=== PATIENT | female | born 1985 | race Caucasian/White ===

== ENCOUNTER 2016-10-20 20:45 | Emergency (ER) | payer MEDICAID ==
[2016-10-20 21:28] LABS: RBC URINE 2 /hpf (0-3); URINE BACTERIA RARE (<OCC); URINE BILIRUBIN NEGATIVE (NEGATIVE); URINE COLOR Yellow (YELLOW); URINE GLUCOSE (UA) NORMAL (Normal); URINE KETONE NEGATIVE (NEGATIVE); URINE PROTEIN NEGATIVE (NEGATIVE); URINE UROBILINOGEN NORMAL mg/dL (0.2-1.0); WBC URINE 5 /hpf (0-5)
[2016-10-20 21:29] LABS: URINE BLOOD NEGATIVE (NEGATIVE); URINE LEUKOCYTE ESTERASE TRACE Leu/uL (Negative)
[2016-10-20 21:32] LABS: BASO % 0.4 % (0.0-2.0); EOS % 0.4 % (0.0-4.0); HEMATOCRIT 37.3 % (34.0-47.0); LYMPH # 1.1 K/uL (1.0-4.3); LYMPH % 17.6 % (20.0-40.0); MEAN CELL VOLUME 82.8 fL (81.0-99.0); MEAN CORPUSCULAR HEMOGLOBIN 28.2 pg (27.0-31.0); MEAN CORPUSCULAR HGB CONC 34.1 g/dL (33.0-37.0); MEAN PLATELET VOLUME 9.2 fL (7.2-11.7); MONO # 0.5 K/uL (0.0-0.8); MONO % 7.1 % (0.0-10.0); RED CELL DISTRIBUTION WIDTH 13.4 % (11.5-14.5); WHITE BLOOD COUNT 6.5 K/uL (4.8-10.8)
[2016-10-20 21:34] LABS: CHLORIDE 96 mmol/L (98-107)
[2016-10-20 21:35] LABS: POTASSIUM 3.3 mmol/L (3.6-5.2); SODIUM 134 mmol/L (132-148)
[2016-10-20 21:37] LABS: ALB/GLOB RATIO 1.1 (1.0-2.1); AST/SGOT 25 U/L (14-36); BILIRUBIN,TOTAL 0.1 mg/dL (0.2-1.3); BLOOD UREA NITROGEN 6 mg/dL (7-17); CARBON DIOXIDE 25 mmol/L (22-30); GFR AFRICAN-AMERICAN > 60; GLUCOSE,RANDOM 78 mg/dL (65-105); TOTAL PROTEIN 6.8 g/dL (6.3-8.3)
[2016-10-20 21:38] LABS: ALKALINE PHOSPHATASE 54 U/L (38-126); ALT/SGPT 20 U/L (9-52); CALCIUM 8.4 mg/dl (8.6-10.4)
--- NOTE | 2016-10-20 21:42 | C.PDOC ---
History Of Present Illness The patient, a 31 y/o female who is around 11 weeks , presents to the emergency department for evaluation of abdominal cramping associated with vaginal spotting which began around 1 day ago. Patient also reports a mild cough , congestion, and sore throat. She denies fever, chills, nausea, vomiting. Patient is . Time Seen by Provider: 10/20/16 21:03 Chief Complaint (Nursing): Abdominal Pain History Per: Patient History/Exam Limitations: no limitations Onset/Duration Of Symptoms: Hrs Current Symptoms Are (Timing): Still Present Radiation Of Pain To:: None Quality Of Discomfort: Cramping Associated Symptoms: Other (+mild cough, congestion, sore throat ). denies: Fever, Chills, Nausea, Vomiting Abnormal Vaginal Bleeding: Yes : 8 Para: 2 Past Medical History Reviewed: Historical Data, Nursing Documentation, Vital Signs Vital Signs: Last Vital Signs Temp 98.4 F 10/20/16 22:21 Pulse 85 10/20/16 22:21 Resp 17 10/20/16 22:21 BP 127/82 10/20/16 22:21 Pulse Ox 100 10/20/16 22:21 - Medical History PMH: No Chronic Diseases Surgical History: No Surg Hx Family History: States: Unknown Family Hx - Social History Hx Alcohol Use: No Hx Substance Use: No - Immunization History Hx Tetanus Toxoid Vaccination: No Hx Influenza Vaccination: No Hx Pneumococcal Vaccination: No Review Of Systems Except As Marked, All Systems Reviewed And Found Negative. Constitutional: Negative for: Fever, Chills ENT: Positive for: Nose Congestion, Throat Pain Respiratory: Positive for: Cough (mild ) Gastrointestinal: Positive for: Abdominal Pain (cramping ) Genitourinary: Positive for: Vaginal Bleeding (spotting ) Physical Exam - Physical Exam Appears: Non-toxic, No Acute Distress Skin: Normal Color, Warm, Dry Head: Atraumatic, Normacephalic Eye(s): bilateral: Normal Inspection, EOMI Ear(s): Bilateral: Normal Nose: Normal, No Discharge Oral Mucosa: Moist Throat: Erythema, No Exudate Neck: Normal ROM, Supple Chest: Symmetrical, No Deformity, No Tenderness Cardiovascular: Rhythm Regular, No Murmur Respiratory: Normal Breath Sounds, No Rales, No Rhonchi, No Wheezing Gastrointestinal/Abdominal: Tenderness (mild, to suprapublic region on palpation ), No Guarding, No Rebound Back: Normal Inspection, No Vertebral Tenderness, No Paraspinal Tenderness Extremity: Normal ROM, Capillary Refill (less than 2 seconds) Neurological/Psych: Oriented x3, Normal Speech, Normal Cognition Gait: Steady ED Course And Treatment - Laboratory Results Result Diagrams: 10/20/16 21:12 10/20/16 21:12 O2 Sat by Pulse Oximetry: 99 (on RA) Pulse Ox Interpretation: Normal Medical Decision Making Medical Decision Making: Impression: 31y/o female c/o abdominal cramping, vaginal spotting, mild cough, congestion, and sore throat Plan: * labs * reassess and disposition Progress Notes: Patient declines medications in the emergency department and states she "wants the baby checked." 1114: pt reassesed. comfortable. abd soft. no ttp. influenza tx. iup confirmed stablef or d/c Disposition - Disposition Referrals: [facility] [Outside] [facility] [Outside] Satish Driscoll [Staff Provider] - Disposition: HOME/ ROUTINE Disposition Time: 23:14 Condition: STABLE Additional Instructions: please follow up with your doctor. return to er with worsening symptoms or concerns. Instructions: Influenza (ED), Threatened Miscarriage (ED) - Clinical Impression Clinical Impression: Influenza, Threatened miscarriage - Scribe Statement The provider has reviewed the documentation as recorded by the Scribe (Ana Cunningham) Provider Attestation: All medical record entries made by the Scribe were at my direction and personally dictated by me. I have reviewed the chart and agree that the record accurately reflects my personal performance of the history, physical exam, medical decision making, and the department course for this patient. I have also personally directed, reviewed, and agree with the discharge instructions and disposition.
[2016-10-20 22:27] VITALS: BP 127/82; PULSE 85; RESP 17; TEMP 98.4
[2016-10-20 23:17] VITALS: O2SAT 99
--- NOTE | 2016-10-21 14:58 | US ---
PROCEDURE: OB Pelvic Ultrasound HISTORY: COMPARISON: None available. FINDINGS: UTERUS: Gestational sac: Single intrauterine gestation. Heart rate: 158 bpm. age (Ultrasound estimated): 12 weeks and 0 days Emmanuelle-gestational hemorrhage: None. Date of delivery (Ultrasound estimated) : 05/04/2017 Uterus anteverted an measures 13.7 x 7.6 x 10.1 cm. Normal in size and appearance. CERVIX: Long and closed. No cervical abnormality seen. RIGHT OVARY: Measures 2.3 x 2.2 x 2.6 cm. No mass lesion. Normal flow. LEFT OVARY: Measures 2.7 x 2.0 x 2.2 cm. No solid mass. Normal flow. FREE FLUID: None. OTHER FINDINGS: None. IMPRESSION: Single live intrauterine fetus with mean gestational age of 12 weeks and 0 days. The ultrasound dates correspond with the clinical dates. Expected date of delivery by ultrasound is 05/04/2017. A preliminary report was provided by [facility].
== END 2016-10-20 23:29 | disposition home or self-care (01) ==
LOC: C.ER 20:45
DX: O20.0 Threatened abortion (principal); Z3A.12 12 weeks gestation of pregnancy; J11.1 Influenza due to unidentified influenza virus with other respiratory manifestations